=== PATIENT | female | born 1985 | race Caucasian/White ===

== ENCOUNTER → 2019-07-02 | Outpatient (CLI) | payer OTHER | LOC: GMAL 10:41 | PROVIDERS: ATTEND Family Medicine | DX: E03.9 Hypothyroidism, unspecified (principal); Z79.899 Other long term (current) drug therapy ==

== ENCOUNTER → 2020-06-30 | Outpatient (CLI) | payer OTHER | LOC: GMAL 11:56 | PROVIDERS: ATTEND Family Medicine | DX: D51.3 Other dietary vitamin B12 deficiency anemia (principal); D50.8 Other iron deficiency anemias; E03.9 Hypothyroidism, unspecified; E55.9 Vitamin D deficiency, unspecified ==

== ENCOUNTER → 2020-07-04 | Outpatient (CLI) | payer OTHER ==
--- NOTE | 2020-07-05 15:56 | MAM ---
EXAM DESCRIPTION: 3D Diagnostic, Bilateral (accession [id number]), Breast,Bilateral (accession [id number]): Ultrasound CLINICAL HISTORY: 34 yearsFemaleNIPPLE DISCHARGE AND PAIN Areola enlargement. Recent vaginal bleeding x 3 months. No palpable mass. Mother with ovarian cancer. Remote family history of breast cancer. Menarche age 14. Childbirth age 28. Premenopausal. No HRT Lifetime risk of developing breast cancer (Tyrer-Cuzick model)(%): Calculated due to age of patient less than 35 years. COMPARISON: None. TECHNIQUE: Bilateral LM, CC, and MLO projection full-field images, digital tomosynthesis technique. Bilateral 2-D digital full-field images: LM, CC, and MLO projections CAD available for 2-D images.. Transcutaneous scanning of bilateral breasts utilizing gaitan-scale and Doppler modes. Scanning performed by the hook loader and observation by Dr. Velasquez. FINDINGS: The breast parenchymal density pattern is: Heterogeneously dense breast tissue, which may obscure small masses. No skin thickening or nipple retraction small solitary microcalcifications. Focal asymmetry middle third of the right breast adjacent to the posterior nipple line. No focal, stellate mass or density, focal asymmetry , and no suspicious microcalcifications left breast. Ultrasound: Scanning bilateral retroareolar breast. Typical shadowing from the nipples bilaterally. Small bilateral adnexa are seen. Predominantly fibroglandular tissues with minimal fatty tissue. Also scanning of the right breast 5 cm from the nipple at 9:00. Mostly fibroglandular tissues with minimal fatty tissue. No dominant soft tissue mass, no distinct cyst, no large calcifications, no fluid collection. No overlying skin changes. IMPRESSION: No suspicious or significant imaging findings. BI-RADS CATEGORY: 1 - NEGATIVE RECOMMENDATIONS: FOLLOW UP: The region of interest should be followed on clinical grounds and if noted to change in size or character, a directed follow-up ultrasound examination may be performed. Written communication explaining the findings and follow-up, will be mailed to the patient and referring health care provider. The FINDINGS and the FOLLOW-UP plan were reviewed in person with the patient after the examination. According to the [employer], yearly mammograms are recommended starting at age 40 and continuing as long as a woman is in good health. Any breast change noted on a breast self-exam should be reported promptly to the patient's healthcare provider. Breast MRI is recommended for women with an approximately 20-25% or greater lifetime risk of breast cancer, including women with a strong family history of breast or ovarian cancer and women who have been treated for Hodgkin's disease. Electronically signed by: Pedro Pablo Velasquez MD 07/05/2020 3:55 PM CDT
== END ==
LOC: MAMMO 11:20
PROVIDERS: ATTEND Family Medicine
DX: N64.59 Other signs and symptoms in breast (principal)
CPT/HCPCS: 76641; 77066; G0279